=== PATIENT | male | born 2000 | race African-American/Black ===

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

== ENCOUNTER 2022-08-24 07:42 | Emergency (ER) | payer OTHER, SELFPAY ==
[2022-08-24] MEDS ORDERED: Ondansetron ODT 4 MG TAB ONE (08:26)
== END 2022-08-24 08:47 | disposition home or self-care (01) ==
LOC: MADERS 07:42
DX: R11.2 Nausea with vomiting, unspecified (principal)
CPT/HCPCS: 99283; Q0162

== ENCOUNTER 2022-10-31 01:58 | Emergency (ER) | payer SELFPAY ==
[2022-10-31] MEDS ORDERED: Bacitracin 1 PK ONE (02:48)
== END 2022-10-31 03:03 | disposition home or self-care (01) ==
LOC: MADERS 01:58
DX: S62.316A Displaced fracture of base of fifth metacarpal bone, right hand, initial encounter for closed fracture (principal); W22.01XA Walked into wall, initial encounter

== ENCOUNTER 2023-08-16 13:28 | Emergency (ER) | payer BC, SELFPAY | END 2023-08-16 14:50 | disposition home or self-care (01) | LOC: MADERS 13:28 | DX: J06.9 Acute upper respiratory infection, unspecified (principal) | CPT/HCPCS: 87081; 87430; 99283 ==

== ENCOUNTER 2023-08-21 09:06 | Emergency (ER) | payer BC ==
[2023-08-21] MEDS ORDERED: Albuterol 200 PUFF (6.7GM INHALER) ONE (09:40)
[2023-08-21] MEDS ORDERED: predniSONE 20 MG TAB ONE (09:40)
== END 2023-08-21 09:47 | disposition home or self-care (01) ==
LOC: MADERS 09:06
DX: J06.9 Acute upper respiratory infection, unspecified (principal); J45.901 Unspecified asthma with (acute) exacerbation; F17.210 Nicotine dependence, cigarettes, uncomplicated
CPT/HCPCS: J7512